=== PATIENT | male | born 1955 | race Two or more races ===

== ENCOUNTER 2022-10-21 22:02 | Inpatient (IN) | payer MEDICARE, OTHER ==
[~2022-10-21] VITALS: Ht 175.3 cm; Wt 93.4 kg
--- NOTE | 2022-10-21 22:10 | NUR ---
PATIENT BIBRA81. DESATURATION 86% ON 8LPM. LOW BP 82/47GIVEN ALBUTEROL TX BY EMS SATTING 91@ 15LPM NRB. PATIENT TO ER BED 05, PLACED ON CARDIAC AND POX MONITOR.
--- NOTE | 2022-10-21 22:20 | NUR ---
DR. JOSIE ESTEVES AT PT'S BEDSIDE FOR EVAL
--- NOTE | 2022-10-21 22:23 | NUR ---
CALLED FACILITY AND SPOKE WITH NURSE JOLIE TO GET A COPY OF THE POLST BECAUSE PT WAS REPORTED DNR ON TRANSFER FORM. PER JOLIE, SHE DOES NOT HAVE A COPY OF THE POLST.
--- NOTE | 2022-10-21 22:30 | NUR ---
F/C 16FR INSERTED; URINE COLLECTED AND SENT TO LAB
--- NOTE | 2022-10-21 22:35 | NUR ---
ALLYN, PT'S NIECE ON THE PHONE WITH DR. GALINDO
--- NOTE | 2022-10-21 22:52 | NUR ---
ENRICHMENT TEACHER AT PT'S BEDSIDE FOR EVAL
--- NOTE | 2022-10-21 22:52 | NUR ---
COVID ANTIGEN SWAB COLLECTED AND SENT TO LAB
[2022-10-21 22:56] LABS: BASOPHILS # (AUTO) 0.1 K/uL (0.0-0.2); BASOPHILS % (AUTO) 0.5 % (0.0-2.0); EOSINOPHILS % (AUTO) 0.1 % (0.0-6.0); HEMATOCRIT 23 % (39-51); HEMOGLOBIN 7.1 g/dL (13.5-17.5); LYMPHOCYTES # (AUTO) 6.4 K/uL (0.8-4.8); LYMPHOCYTES % (AUTO) 26.5 % (20.0-44.0); MEAN CORPUSCULAR HGB CONC 32 g/dl (31.0-36.0); MEAN CORPUSCULAR VOLUME 96 fL (80-96); MONOCYTES # (AUTO) 1.5 K/uL (0.1-1.30); MONOCYTES % (AUTO) 6.1 % (2.0-12.0); NEUTROPHILS # (AUTO) 16.1 K/uL (1.8-8.9); NEUTROPHILS % (AUTO) 66.8 % (43.0-81.0); PLATELET COUNT (AUTO) 116 K/uL (150-450); RED BLOOD CELL COUNT(AUTO) 2.36 MIL/uL (4.5-6.0)
[2022-10-21 23:03] LABS: CALCIUM, SERUM 9.3 mg/dL (8.5-10.1); CARBON DIOXIDE 14 mmol/L (21-32); CHLORIDE 114 mmol/L (98-107); CREATININE 1.6 mg/dL (0.6-1.3); GLUCOSE 77 mg/dL (74-106); POTASSIUM 5.1 mmol/L (3.5-5.1); SODIUM SERUM 144 mmol/L (136-145); UREA NITROGEN, BLOOD 64 mg/dL (7-18)
[2022-10-21 23:13] LABS: BILIRUBIN,URINE 2+ (NEGATIVE); COLOR,URINE YELLOW (YELLOW); LEUKOCYTE ESTERASE ,URINE NEGATIVE (NEGATIVE); NITRITE, URINE NEGATIVE (NEGATIVE); PH,URINE 6.5 (5.0-8.0); PROTEIN,URINE 2+ mg/dl (NEGATIVE); UGLUCOSE NEGATIVE (NEGATIVE)
[2022-10-21 23:16] LABS: ALANINE AMINOTRANSFERASE 16 U/L (12-78); ALKALINE PHOSPHATASE 343 U/L (46-116); ASPARTATE AMINOTRANSFERASE 63 U/L (15-37); BILIRUBIN,DIRECT 3.2 mg/dL (0.0-0.2); TOTAL PROTEIN, SERUM 6.5 g/dL (6.4-8.2)
[2022-10-21 23:22] LABS: ALBUMIN 0.9 g/dL (3.4-5.0)
[2022-10-21] MEDS ORDERED: MORPHINE SULFATE INJ 2 MG/ML DISP.SYRIN IV ONE (23:30)
[2022-10-21] MEDS ORDERED: IV NS 0.9% 500 ML BAG IV ONE (23:30)
[2022-10-21] MEDS ORDERED: CEFEPIME 1 GM in IV D5W 50 ML IV ONE (23:30)
[2022-10-21] MEDS ORDERED: MORPHINE SULFATE INJ 2 MG/ML DISP.SYRIN ONE (23:34)
[2022-10-21] MEDS ORDERED: CEFEPIME 1 GM VIAL ONE (23:34)
[2022-10-22] MEDS ORDERED: ACETAMINOPHEN 325 MG TABLET PO PRN
[2022-10-22] MEDS ORDERED: ONDANSETRON HCL/PF 4 MG/2 ML VIAL IVP PRN
[2022-10-22] MEDS ORDERED: IV NS 0.9% 1,000 ML IV SCH
--- NOTE | 2022-10-22 03:30 | NUR ---
REPORT GIVEN TO ZEKE PABLO
--- NOTE | 2022-10-22 03:37 | NUR ---
TD RN NOTES adMITTED A 66Y/O MALE NONVERBAL ON 15 LITTERS OF 02 VIA NON REBREATHER MASK , SATING 91%ADMITTED WITH DX OD PNA , PTS ON GONG CATH INTACT AND PATENT , NEO MIDLINE INTACT AND PATENT ,ON IVF NS 75CC/HR ON PROGRESS WILL ENDORSE PTS TO RN DAY SHIFT FOR CONTINUITY OF CARE.
--- NOTE | 2022-10-22 03:41 | NUR ---
PATIENT TRANSFERRED UNDER ACLS
[2022-10-22 04:00] VITALS: BP 103/58
[2022-10-22] MEDS: HEPARIN SODIUM, PORCINE 5000 UNITS/1 ML VIAL SQ SCH ×2 (04:35→08:38)
--- NOTE | 2022-10-22 07:30 | NUR ---
TD RN AM NOTES RECIEVED REPORT FROM ATHLETIC GEAR CUSTODIAN. PT CAME IN AT 0400 THIS MORNING, LETHARGIC, AAO X1-2, ON NRBM AT 15L o2, DYSPNEIC, PALE LOOKING, SR ON MONITOR, NO GRIMACINGS BUT IS SHORT OF BREATH. LEFT AC G20 AND NEO G18 WITH NS AT 75 ML /HR INFUSING WELL. SITE CLEAR. SEE NURSING FLOWSHEET FOR SKIN ISSUES. FOR WOUND CONSULT. HOB UP. CALL LIGHT WITHIN REACH. SAFETY MEASURES IN PLACE. WILL CONT TO MONITOR.
--- NOTE | 2022-10-22 07:48 | NUR ---
RN NOTES DR. PHELPS AT BEDSIDE. ORDERED FOR STAT ABG
[2022-10-22 08:00] VITALS: BP 90/59
[2022-10-22 08:10] LABS: ABG BASE EXCESS -12.2 mmol/L; ABG OXYGEN SATURATION 93.4 % (92.0-98.5); ABG PCO2 33.8 mmHg (35.0-45.0); ABG PO2 78.7 mmHg (75.0-100.0); AaDO2 600.5 mmHg; COHb 0.1 % (0.5-1.5); MetHb 0.3 % (0.0-1.5); SITE, ABG Right Radial; VENT MODE, BG 15L NRB
[2022-10-22] MEDS ORDERED: LORA-259 PO (08:18)
[2022-10-22] MEDS ORDERED: BENZ1TAB7 PO (08:18)
[2022-10-22] MEDS ORDERED: VALP250S4 PO (08:18)
[2022-10-22] MEDS ORDERED: IPRA0.2S49 IH (08:18)
[2022-10-22] MEDS ORDERED: PANT40TA49 PO (08:18)
[2022-10-22] MEDS ORDERED: LACT-84 PO (08:18)
[2022-10-22] MEDS ORDERED: FOLI0.8C PO (08:18)
[2022-10-22] MEDS ORDERED: HYDR-3972 PO (08:18)
[2022-10-22] MEDS ORDERED: AMIO200T5 PO (08:18)
[2022-10-22] MEDS ORDERED: CHOL400T11 PO (08:18)
[2022-10-22] MEDS ORDERED: SUCR1ORA15 PO (08:18)
[2022-10-22] MEDS ORDERED: ZOLP5TAB8 PO (08:18)
--- NOTE | 2022-10-22 08:27 | NUR ---
RN NOTES PER DR. CHACON TRANSFER TO ICU
--- NOTE | 2022-10-22 08:39 | NUR ---
RN NOTES HEPARIN NOT ADMINISTERED. LOW HGB 7.1. MD AWARE
--- NOTE | 2022-10-22 08:55 | NUR ---
RN NOTES PATIENT TRANSFERRED TO ICU 253 VIA ACLS PROTOCOL. REPORT GIVEN TO RED RN FOR BRANDEN.
[2022-10-22] MEDS ORDERED: CEFEPIME 2 GM in IV D5W 100 ML IV SCH (09:00)
--- NOTE | 2022-10-22 09:08 | NUR ---
RN NOTES DR. SINGH AT BEDSIDE. ADJUSTED GT. NEW ORDERS RECIEVED START REGLAN 10 MG IV TID. AFTER FIRST IV DOSE MAY START GT FEEDING. Addendum: 10/22/22 at 0910 by JEREMY AYALA RN CORRECTION. DISREGARD THIS DOCUMENTATION INTENDED FOR ANOTHER PATIENT
[2022-10-22] MEDS ORDERED: IV NS 0.9% 500 ML IV ONE (09:30)
[2022-10-22] MEDS ORDERED: MORPHINE SULFATE INJ 2 MG/ML DISP.SYRIN IV PRN ×2 (09:30)
--- NOTE | 2022-10-22 09:58 | NUR ---
RN NOTE PT DNR STATUS. FOUND PT BRADYCARDIC, PROCEEDING TO ASYSTOLE ON MONITOR. VERIFIED IN 2 LEADS. NO PULSES PALPABLE, PUPILS FIXED, NO RESPIRATIONS, AREFLEXIVE. PRONOUNCED AT 0958
--- NOTE | 2022-10-22 10:10 | NUR ---
ASSISTANT PROFESSOR OF CRIMINAL JUSTICE NOTE: PT. WAS TRANSFERRED FROM [facility] ROOM #[id number] TO ICU AT 0855 FOR RESPIRATORY DISTRESS. PT. DNR/DNI. PT. LETHARGIC, ONLY OPENS EYES TO PAINFUL STIMULI. ON 02 VIA NON-REBREATHER MASK AT 15L, SATURATING AT 75% WITH RESP RATE OF 26 BPM. WOOL AND PELT GRADER READ NSR AT 79. ORAL TEMP AT 97F. HAS GONG CATH WITH CLEAR JOLYNN URINE NOTED. HAS R AC #20G, SALINE LOCKED AND NEO MIDLINE SALINE LOCKED. IV NS AT 75 ML/HR RESTARTED. PT.'S BP WAS 71/[address] PHELPS () NOTIFIED AND ORDERED A BOLUS OF 500 ML NS. FAMILY CONTACTED BY TO ASK IF THEY WANT TO GIVE PRESSORS AND FAMILY SAID NO AND REQUESTED FOR PT. TO BE MADE COMFORTABLE. ORDERED MORPHINE 2MG IV Q4H PRN FOR COMFORT. ONE DOSE GIVEN AT 0930 PT. CONTINUES TO BE IN RESPIRATORY DISTRESS. PT. WENT ASYSTOLE WITH OFFICIAL TIME OF AT 0958. POST MORTEM CARE PROVIDED. FAMILY ON THEIR WAY TO THE HOSPITAL.
--- NOTE | 2022-10-22 10:15 | NUR ---
MOLD CLAMPER NOTE: CALLED [facility] AT 1010 TO REPORT PT.'S . SPOKE WITH WILY Martinez AND WAS GIVEN REFERRAL ID # [id number].
--- NOTE | 2022-10-22 11:18 | NUR ---
SKY DIVER NOTE: RECEIVED A FOLLOW-UP CALL FROM [facility] AT 1115. SPOKE WITH BENJI HILL. GAVE INFORMATION REGARDING THE PT. AND [facility] DETERMINED THAT PT. IS NOT CANDIDATE FOR [employer] DONATION. REFERRAL ID# [id number]
--- NOTE | 2022-10-22 13:07 | NUR ---
CARD MOUNTER NOTE: CALLED [facility] AND SPOKE WITH TRAMAINE. PT. WAS RELEASED FROM [facility].
== END 2022-10-22 09:58 | DRG 871 ==
LOC: ER 22:04 → TELE-TD 10-22 02:54 → ICU 10-22 08:38
PROVIDERS: ADMIT Internal Medicine; ATTEND Internal Medicine
DX: A41.9 Sepsis, unspecified organism (principal); E43 Unspecified severe protein-calorie malnutrition; J18.9 Pneumonia, unspecified organism; G93.41 Metabolic encephalopathy; N17.0 Acute kidney failure with tubular necrosis; J96.22 Acute and chronic respiratory failure with hypercapnia; J96.21 Acute and chronic respiratory failure with hypoxia; E87.20 Acidosis, unspecified; J44.0 Chronic obstructive pulmonary disease with (acute) lower respiratory infection; C78.02 Secondary malignant neoplasm of left lung; C78.01 Secondary malignant neoplasm of right lung; R65.20 Severe sepsis without septic shock; C80.1 Malignant (primary) neoplasm, unspecified; D64.9 Anemia, unspecified; D69.6 Thrombocytopenia, unspecified; E88.09 Other disorders of plasma-protein metabolism, not elsewhere classified; F20.9 Schizophrenia, unspecified; F31.9 Bipolar disorder, unspecified; N18.9 Chronic kidney disease, unspecified; Z66 Do not resuscitate; Z87.891 Personal history of nicotine dependence; I95.9 Hypotension, unspecified; Z91.199 Patient's noncompliance with other medical treatment and regimen due to unspecified reason
CPT/HCPCS: 36415; 36600; 71045-TC; 80048-TC; 80076-TC; 82803-TC; 83605-TC; 83880; 84484-TC; 85025-TC; 85730-TC; 87040-TC; 87081-TC; 87086-TC; C9803; G0378; J0692; J1644; J2270; J7060